=== PATIENT | female | born 1990 | race African-American/Black ===

== ENCOUNTER 2017-08-16 22:31 | Emergency (ER) | payer OTHER ==
[~2017-08-16] VITALS: Ht 170.2 cm; Wt 68.0 kg
[~2017-08-16 22:31] MED LIST: FLEXERIL PO; IBUPROFEN 200200 M1 PO; IBUPROFEN 600600 M1 PO; IBUPROFEN 800800 M1 PO; ULTRAM50 MG PO
[2017-08-16 22:36] VITALS: BP 113/76
== END 2017-08-16 23:47 | disposition home or self-care (01) ==
LOC: ER 22:31
DX: J02.0 Streptococcal pharyngitis (principal)